=== PATIENT | female | born 1960 | race Caucasian/White ===

== ENCOUNTER 2016-08-19 20:31 | Emergency (ER) | payer SELFPAY ==
--- NOTE | 2016-08-19 20:49 | ER Document Report ---
ED Medical Screen (RME) - General Stated Complaint: CHEST PAIN Notes: 55 yo female c/o left sided chest pain, radiated to left shoulder and neck since 10am today. no previous cardiac hx. 4/5, squeezing pain. mild shortness of breath, + nausea. no HTN, no DM, + smoker. + fam cardiac hx - Related Data Allergies/Adverse Reactions: No Known Allergies Allergy (Verified 01/13/13 17:08) Past Medical History Past Surgical History: Reports: Hx Tubal Ligation - bilateral - Immunizations Hx Diphtheria, Pertussis, Tetanus Vaccination: Yes
[2016-08-19] MEDS ORDERED: ASPIRIN 81 MG TABLET, CHEWABLE PO ONE (20:53)
[2016-08-19] MEDS ORDERED: ONDANSETRON 4 MG TAB.RAPDIS PO ONE (20:53)
[2016-08-19 21:23] LABS: ABSOLUTE BASOPHILS # (AUTO) 0.1 10^3/uL (0.0-0.2); ABSOLUTE EOSINOPHILS # (AUTO) 0.1 10^3/uL (0.0-0.6); ABSOLUTE LYMPHOCYTES (AUTO) 3.5 10^3/uL (0.5-4.7); ABSOLUTE MONOCYTES (AUTO) 0.6 10^3/uL (0.1-1.4); ABSOLUTE NEUT (AUTO) 4.8 10^3/uL (1.7-8.2); BASOPHILS % (AUTO) 0.6 % (0-2); EOSINOPHILS % (AUTO) 1.6 % (0-6); HEMATOCRIT 42.3 % (36.0-47.0); HEMOGLOBIN 14.3 g/dL (12.0-15.5); HGB HCT DIFFERENCE 0.6; LYMPHOCYTES % (AUTO) 38.5 % (13-45); MEAN CORPUSCULAR HGB CONC 33.8 g/dL (32.0-36.0); MEAN CORPUSCULAR VOLUME 89 fl (80-97); MONOCYTES % (AUTO) 6.9 % (3-13); RED BLOOD COUNT 4.75 10^6/uL (3.72-5.28); RED CELL DISTRIBUTION WIDTH 13.6 % (11.5-14.0); SEGMENTED NEUTROPHILS % (AUTO) 52.4 % (42-78); WHITE BLOOD COUNT 9.1 10^3/uL (4.0-10.5)
[2016-08-19 21:33] LABS: ALANINE AMINOTRANSFERASE 42 U/L (9-52); ALBUMIN 4.8 g/dL (3.5-5.0); ALKALINE PHOSPHATASE 100 U/L (38-126); ANION GAP 15 (5-19); ASPARTATE AMINO TRANSFERASE 27 U/L (14-36); BILIRUBIN,TOTAL 0.4 mg/dL (0.2-1.3); BLOOD UREA NITROGEN 18 mg/dL (7-20); CALCIUM 9.8 mg/dL (8.4-10.2); CARBON DIOXIDE 26 mmol/L (22-30); CHLORIDE 103 mmol/L (98-107); CREATINE KINASE 188 U/L (30-135); CREATININE RESULT 0.67 mg/dL (0.52-1.25); GLUCOSE 121 mg/dL (75-110); LIPASE 157.4 U/L (23-300); POTASSIUM 3.7 mmol/L (3.6-5.0); SODIUM 143.8 mmol/L (137-145); TOTAL PROTEIN 7.5 g/dL (6.3-8.2)
[2016-08-19 21:34] LABS: APPEARANCE,URINE CLOUDY; BILIRUBIN,URINE NEGATIVE (NEGATIVE); GLUCOSE, URINE NEGATIVE (NEGATIVE); KETONES,URINE NEGATIVE (NEGATIVE); LEUKOCYTE ESTERASE,URINE NEGATIVE (NEGATIVE); NITRITE,URINE NEGATIVE (NEGATIVE); PROTEIN,URINE NEGATIVE (NEGATIVE); URINE SPECIFIC GRAVITY 1.013; UROBILINOGEN,URINE NEGATIVE mg/dL (<2.0)
[2016-08-19 21:53] LABS: TROPONIN I < 0.012 ng/mL
[2016-08-19 22:01] LABS: PARTIAL THROMBOPLASTIN TIME 21.9 SEC (23.5-35.8); PROTHROMBIN TIME 11.7 SEC (11.4-15.4)
--- NOTE | 2016-08-19 22:02 | ER Document Report ---
ED General - General Chief Complaint: Chest Pain Stated Complaint: CHEST PAIN Notes: Patient is 55-year-old female presents with complaints of chest pain. She says chest pains around 10:30 AM. She says it was intermittent. She says chest pain since resolved. She has no cardiac history. Patient also complains of headache. Patient says her headache started approximately 45 minutes to an hour prior to arrival to the ER. Headache was sudden in onset. She has since had some vomiting. She says it started as a pain in her back to radiate up her neck and into her head and her head has been throbbing. Triage nurse noticed that patient had some facial droop and therefore CT scan was immediately ordered. CT scan unfortunately shows subarachnoid hemorrhage. TRAVEL OUTSIDE OF THE [place] IN LAST 30 DAYS: No - Related Data Allergies/Adverse Reactions: No Known Allergies Allergy (Verified 01/13/13 17:08) Past Medical History - Social History Smoking Status: Current Every Day Smoker Chew tobacco use (# tins/day): No Frequency of alcohol use: None Drug Abuse: None Family History: Reviewed & Not Pertinent Patient has suicidal ideation: No Patient has homicidal ideation: No Renal/ Medical History: Denies: Hx Peritoneal Dialysis Past Surgical History: Reports: Hx Tubal Ligation - bilateral - Immunizations Hx Diphtheria, Pertussis, Tetanus Vaccination: Yes Review of Systems - Review of Systems Notes: My Normal Review Basic REVIEW OF SYSTEMS: CONSTITUTIONAL : Denies fever, chills, or sweats. Denies recent illness. EENT: Denies eye, ear, throat, or mouth pain or symptoms. Denies nasal or sinus congestion. RESPIRATORY: Denies cough, cold, or chest congestion. Denies shortness of breath, difficulty breathing, or wheezing. GASTROINTESTINAL: Denies abdominal pain. Some vomiting. Denies constipation. Last BM: MUSCULOSKELETAL: Denies neck or back pain or joint pain or swelling. SKIN: Denies rash or skin lesions. HEMATOLOGIC : Denies easy bruising or bleeding.ed glands. NEUROLOGICAL: Has a headache. Right-sided facial droop ALL OTHER SYSTEMS REVIEWED AND NEGATIVE. Physical Exam - Vital signs Vitals: Temp Pulse Resp BP Pulse Ox 97.3 F 86 18 171/87 H 94 08/19/16 20:47 08/19/16 20:47 08/19/16 20:47 08/19/16 20:47 08/19/16 20:47 - Notes Notes: General Appearance: Well nourished, alert, cooperative, no acute distress, mild obvious discomfort. Vitals: reviewed, See vital signs table. Head: no swelling or tenderness to the head Eyes: PERRL, EOMI, Conjuctiva clear Mouth: No decreasd moisturey Neck: Supple, no neck tenderness, No thyromegaly Lungs: No wheezing, No rales, No rhonci, No accessory muscle use, good air exchange bilaterally. Heart: Normal rate, Regular rythm, No murmur, no rub Abdomen: Normal BS, soft, No rigidity, No abdominal tenderness, No guarding, no rebound, no abdominal masses, no organomegaly Extremities: strength 5/5 in all extremities, good pulses in all extremities, no swelling or tenderness in the extremities, no edema. Skin: warm, dry, appropriate color, no rash Neuro: speech clear, oriented x 3, normal affect, responds appropriately to questions. Patient has right-sided facial droop when she goes to smile. She has good strength in all 4 extremities. There is no focal weakness in any of her force tremors. Good distal sensation. Gait not tested at this time. Course - Re-evaluation Re-evalutation: 08/19/16 22:16 I have immediately called [facility] and spoke with them to transfer the patient. Also continue the orders that were performed in triage. Unfortunately appears that someone ordered a chest pain order set in triage because she initially presented with chest pain. In this order set is aspirin. I did find the charge nurse and asked her if the patient did receive aspirin. The charge nurse confirms the patient had already received the aspirin when she was first initially evaluated in triage. - Vital Signs Vital signs: Temp Pulse Resp BP Pulse Ox 97.3 F 86 18 171/87 H 94 08/19/16 20:47 08/19/16 21:05 08/19/16 21:05 08/19/16 21:05 08/19/16 21:05 - Laboratory Result Diagrams: 08/19/16 20:58 08/19/16 20:58 Laboratory results interpreted by me: 08/19/16 08/19/16 08/19/16 20:58 20:58 20:58 APTT 21.9 L Glucose 121 H Creatine Kinase 188 H Urine Blood SMALL H - EKG Interpretation by Me Additional EKG results interpreted by me: 08/19/16 22:01 EKG is reviewed and interpreted by me. EKG shows normal sinus rhythm with rate of [address] segment elevation or depression. No ischemic T wave inversions. DC level, QRS duration, QTC intervals are within normal range. No old EKG available for comparison at this time. - Transfer of Care Notes: 08/19/16 22:41 I just reevaluated patient. I will order some morphine for pain. I did order no cardiac pain to be hung but not administered unless patient's blood pressure does get above 165 systolically. Currently her blood pressures in the 150s systolically and 80s diastolically. She has had some vomiting. She did receive Zofran. I have ordered Phenergan. I did speak with Dr. Lutz, neurosurgeon, who agrees to accept the patient. Transport is actually already very nearby the hospital and will be here very shortly. I did sit down with the patient and her . I explained to them that aspirin was given earlier because of her initial complaint of chest pain. They are very understanding of this. Patient says she did vomit shortly after receiving aspirin. They have no further questions regarding to this. All questions were answered in regards to her underlying condition and possible treatment options. I informed them that further discussion about treatment for this will be discussed with him by the neurosurgeon at [facility]. Dictation of this chart was performed using voice recognition software; therefore, there may be some unintended grammatical errors. Discharge - Discharge Clinical Impression: Subarachnoid bleed Chest pain Qualifiers: Chest pain type: unspecified Qualified Code(s): R07.9 - Chest pain, unspecified Condition: Stable Disposition: [facility]
[2016-08-19] MEDS ORDERED: PROMETHAZINE HCL INJ 25 MG/1 ML VIAL IM ONE (22:22)
[2016-08-19] MEDS ORDERED: NICARDIPINE HCL RTU, ISO-OS 200 ML IV PRN (22:22)
[2016-08-19] MEDS ORDERED: MORPHINE SULFATE 10 MG/ML INJ IV ONE (22:38)
[2016-08-19 22:51] VITALS: BP 156/88
[2016-08-19] MEDS ORDERED: PROMETHAZINE HCL INJ 25 MG/1 ML VIAL ONE (23:12)
--- NOTE | 2016-08-21 12:51 | EKG REPORT ---
SEVERITY:- ABNORMAL ECG - SINUS RHYTHM CONSIDER ANTEROSEPTAL INFARCT : Confirmed by: Mick Vaughan MD 21-Aug-2016 12:50:24
== END 2016-08-19 23:09 | disposition short-term general hospital (02) ==
LOC: ER 20:31
DX: I60.9 Nontraumatic subarachnoid hemorrhage, unspecified (principal); R07.9 Chest pain, unspecified; R51 Headache; M54.2 Cervicalgia; F17.210 Nicotine dependence, cigarettes, uncomplicated
CPT/HCPCS: 93005; 99285; 96374; 36415; 82553; 82550; 83690; 85025; 85610; 85730; 80053; 81001; 84484; 71020; 70450; 93010; S0119; J2270

== ENCOUNTER 2017-03-31 16:20 | Emergency (ER) | payer OTHER ==
[2017-03-31] MEDS ORDERED: PHENTOLAMINE MESYLATE INJ 5 MG VIAL IV ONE (16:58)
[2017-03-31] MEDS ORDERED: MORPHINE SULFATE 10 MG/ML INJ IV ONE (16:58)
[2017-03-31] MEDS ORDERED: NORMAL SALINE 1000 ML 1,000 ML IV ONE (16:58)
--- NOTE | 2017-03-31 16:59 | ER Document Report ---
ED Medical Screen (RME) - General Chief Complaint: Abdominal Pain Stated Complaint: ABDOMINAL PAIN Time Seen by Provider: 03/31/17 16:57 Notes: Patient reports onset this morning of left lower quadrant abdominal pain and left lower back pain. No previous history of kidney stones. No vaginal symptoms. She has had nausea as well. No change of stools. No fevers. Patient was recently in the hospital for clipping of a brain aneurysm. 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 No current headache or neurological symptoms. TRAVEL OUTSIDE OF THE [place] IN LAST 30 DAYS: No - Related Data Allergies/Adverse Reactions: hydralazine Allergy (Verified 03/31/17 16:27) Penicillins Allergy (Verified 03/31/17 16:27) ondansetron [From Zofran (as hydrochloride)] Adverse Reaction (Verified 16:27) Past Medical History - Social History Chew tobacco use (# tins/day): No Frequency of alcohol use: None Drug Abuse: None - Past Medical History Cardiac Medical History: Reports: Hx Hypercholesterolemia Renal/ Medical History: Denies: Hx Peritoneal Dialysis Past Surgical History: Reports: Hx Tubal Ligation - Immunizations Hx Diphtheria, Pertussis, Tetanus Vaccination: Yes History of Influenza Vaccine for 03/2017 - 08/2017 Season: No Physical Exam - Vital signs Vitals: Temp Pulse Resp BP Pulse Ox 98.7 F 98 18 144/91 H 98 03/31/17 16:24 03/31/17 16:24 03/31/17 16:24 03/31/17 16:24 03/31/17 16:24 Course - Vital Signs Vital signs: Temp Pulse Resp BP Pulse Ox 98.7 F 98 18 144/91 H 98 03/31/17 16:24 03/31/17 16:24 03/31/17 16:24 03/31/17 16:24 03/31/17 16:24
[2017-03-31] MEDS ORDERED: METOCLOPRAMIDE HCL INJ/PF 10 MG/2 ML SDV IV ONE (17:16)
[2017-03-31 17:33] LABS: ABSOLUTE BASOPHILS # (AUTO) 0.1 10^3/uL (0.0-0.2); ABSOLUTE MONOCYTES (AUTO) 0.7 10^3/uL (0.1-1.4); BASOPHILS % (AUTO) 0.5 % (0-2); EOSINOPHILS % (AUTO) 0.1 % (0-6); HEMATOCRIT 38.6 % (36.0-47.0); HEMOGLOBIN 12.6 g/dL (12.0-15.5); HGB HCT DIFFERENCE -0.8; LYMPHOCYTES % (AUTO) 11.9 % (13-45); MEAN CORPUSCULAR HEMOGLOBIN 29.3 pg (27.0-33.4); MEAN CORPUSCULAR HGB CONC 32.8 g/dL (32.0-36.0); MEAN CORPUSCULAR VOLUME 89 fl (80-97); MONOCYTES % (AUTO) 4.3 % (3-13); RED BLOOD COUNT 4.32 10^6/uL (3.72-5.28); RED CELL DISTRIBUTION WIDTH 14.2 % (11.5-14.0); SEGMENTED NEUTROPHILS % (AUTO) 83.2 % (42-78); WHITE BLOOD COUNT 16.8 10^3/uL (4.0-10.5)
[2017-03-31 17:47] LABS: APPEARANCE,URINE SLIGHTLY-CLOUDY; BILIRUBIN,URINE NEGATIVE (NEGATIVE); GLUCOSE, URINE NEGATIVE (NEGATIVE); KETONES,URINE NEGATIVE (NEGATIVE); LEUKOCYTE ESTERASE,URINE TRACE (NEGATIVE); NITRITE,URINE NEGATIVE (NEGATIVE); PROTEIN,URINE NEGATIVE (NEGATIVE); URINE SPECIFIC GRAVITY 1.019; UROBILINOGEN,URINE NEGATIVE mg/dL (<2.0)
[2017-03-31 17:49] LABS: ALANINE AMINOTRANSFERASE 48 U/L (9-52); ALBUMIN 4.7 g/dL (3.5-5.0); ALKALINE PHOSPHATASE 113 U/L (38-126); ANION GAP 15 (5-19); ASPARTATE AMINO TRANSFERASE 28 U/L (14-36); BILIRUBIN,DIRECT 0.3 mg/dL (0.0-0.4); BILIRUBIN,TOTAL 0.3 mg/dL (0.2-1.3); BLOOD UREA NITROGEN 13 mg/dL (7-20); CALCIUM 9.6 mg/dL (8.4-10.2); CARBON DIOXIDE 25 mmol/L (22-30); CHLORIDE 105 mmol/L (98-107); CREATININE RESULT 0.75 mg/dL (0.52-1.25); GLUCOSE 127 mg/dL (75-110); LIPASE 83.6 U/L (23-300); SODIUM 144.5 mmol/L (137-145); TOTAL PROTEIN 7.6 g/dL (6.3-8.2)
--- NOTE | 2017-03-31 17:51 | ER Document Report ---
ED General - General Chief Complaint: Abdominal Pain Stated Complaint: ABDOMINAL PAIN Time Seen by Provider: 03/31/17 16:57 Mode of Arrival: Ambulatory Information source: Patient Notes: 56-year-old female presents with left flank pain radiating to the left groin. Patient has pain started earlier today denies any fevers or chills denies any urinary symptoms denies any abdominal pain TRAVEL OUTSIDE OF THE [place] IN LAST 30 DAYS: No - HPI Onset: Just prior to arrival Onset/Duration: Sudden Quality of pain: Achy Severity: Mild Pain Level: 1 Associated symptoms: Other Exacerbated by: Denies Relieved by: Denies Similar symptoms previously: No Recently seen / treated by doctor: No - Related Data Allergies/Adverse Reactions: hydralazine Allergy (Verified 03/31/17 16:27) Penicillins Allergy (Verified 03/31/17 16:27) ondansetron [From Zofran (as hydrochloride)] Adverse Reaction (Verified 16:27) Past Medical History - Social History Smoking Status: Former Smoker Cigarette use (# per day): No Chew tobacco use (# tins/day): No Smoking Education Provided: No Frequency of alcohol use: None Drug Abuse: None Family History: Reviewed & Not Pertinent - Past Medical History Cardiac Medical History: Reports: Hx Hypercholesterolemia Renal/ Medical History: Denies: Hx Peritoneal Dialysis Past Surgical History: Reports: Hx Tubal Ligation - Immunizations Hx Diphtheria, Pertussis, Tetanus Vaccination: Yes Review of Systems - Review of Systems Notes: REVIEW OF SYSTEMS: CONSTITUTIONAL : Denies fever, chills, or sweats. Denies recent illness. EENT: Denies eye, ear, throat, or mouth pain or symptoms. Denies nasal or sinus congestion or discharge. Denies throat, tongue, or mouth swelling or difficulty swallowing. CARDIOVASCULAR: Denies chest pain. Denies palpitations or racing or irregular heart beat. Denies ankle edema. RESPIRATORY: Denies cough, cold, or chest congestion. Denies shortness of breath, difficulty breathing, or wheezing. GASTROINTESTINAL: Admits to left lower quadrant pain remains the left flank GENITOURINARY: Denies difficulty urinating, painful urination, burning, frequency, blood in urine, or discharge. FEMALE GENITOURINARY: Denies vaginal bleeding, heavy or abnormal periods, irregular periods. Denies vaginal discharge or odor. MUSCULOSKELETAL: Denies back or neck pain or stiffness. Denies joint pain or swelling. SKIN: Denies rash, lesions or sores. HEMATOLOGIC : Denies easy bruising or bleeding. LYMPHATIC: Denies swollen, enlarged glands. NEUROLOGICAL: Denies confusion or altered mental status. Denies passing out or loss of consciousness. Denies dizziness or lightheadedness. Denies headache. Denies weakness or paralysis or loss of use of either side. Denies problems with gait or speech. Denies sensory loss, numbness, or tingling. Denies seizures. PSYCHIATRIC: Denies anxiety or stress. Denies depression, suicidal ideation, or homicidal ideation. ALL OTHER SYSTEMS REVIEWED AND NEGATIVE. PHYSICAL EXAMINATION: GENERAL: Well-appearing, well-nourished and in no acute distress. HEAD: Atraumatic, normocephalic. EYES: Pupils equal round and reactive to light, extraocular movements intact, conjunctiva are normal. ENT: Nares patent, oropharynx clear without exudates. Moist mucous membranes. NECK: Normal range of motion, supple without lymphadenopathy LUNGS: Breath sounds clear to auscultation bilaterally and equal. No wheezes rales or rhonchi. HEART: Regular rate and rhythm without murmurs ABDOMEN: Soft, mild left CVA tenderness Female : deferred Musculoskeletal: Normal range of motion, no pitting or edema. No cyanosis. NEUROLOGICAL: Cranial nerves grossly intact. Normal speech, normal gait. Normal sensory, motor exams PSYCH: Normal mood, normal affect. SKIN: Warm, Dry, normal turgor, no rashes or lesions noted. Dictation was performed using [employer] voice recognition software Physical Exam - Vital signs Vitals: Temp Pulse Resp BP Pulse Ox 98.7 F 98 18 144/91 H 98 03/31/17 16:24 03/31/17 16:24 03/31/17 16:24 03/31/17 16:24 03/31/17 16:24 Course - Re-evaluation Re-evalutation: 03/31/17 18:11 Patient is noted to have hematuria elevated white count CTs pending 03/31/17 19:17 CT is consistent with a stone. There is no sign of infection. Patient will be given urologist as well as close follow-up instructions After performing a Medical Screening Examination, I estimate there is LOW risk for ACUTE APPENDICITIS, BOWEL OBSTRUCTION, ACUTE CHOLECYSTITIS, PERFORATED DIVERTICULITIS, INCARCERATED HERNIA, PANCREATITIS, PELVIC INFLAMMATORY DISEASE, PERFORATED ULCER, ECTOPIC , or TUBO-OVARIAN ABSCESS, thus I consider the discharge disposition reasonable. Also, there is no evidence or peritonitis , sepsis, or toxicity. I have reevaluated this patient multiple times and no significant life threatening changes are noted. The patient and I have discussed the diagnosis and risks, and we agree with discharging home with close follow-up with the understanding that symptoms and presentations can change. We also discussed returning to the Emergency Department immediately if new or worsening symptoms occur. We have discussed the symptoms which are most concerning (e.g., bloody stool, fever, changing or worsening pain, vomiting) that necessitate immediate return. - Vital Signs Vital signs: Temp Pulse Resp BP Pulse Ox 98.7 F 98 18 144/91 H 98 03/31/17 16:24 03/31/17 16:24 03/31/17 16:24 03/31/17 16:24 03/31/17 16:24 - Laboratory Result Diagrams: 03/31/17 17:14 03/31/17 17:14 Laboratory results interpreted by me: 03/31/17 03/31/17 03/31/17 17:14 17:14 17:14 WBC 16.8 H RDW 14.2 H Seg Neutrophils % 83.2 H Lymphocytes % 11.9 L Absolute Neutrophils 14.0 H Glucose 127 H Urine Blood MODERATE H Ur Leukocyte Esterase TRACE H - Diagnostic Test Radiology reviewed: Image reviewed, Reports reviewed - report given to patient Discharge - Discharge Clinical Impression: Kidney stone on left side Condition: Stable Disposition: HOME, SELF-CARE Instructions: Kidney Stone ([facility]) Prescriptions: Ketorolac Tromethamine [Toradol 10 mg Tablet] 10 mg PO Q8HP PRN #14 tablet PRN Reason: Metoclopramide HCl [Reglan 10 mg Tablet] 1 - 2 tab PO ASDIR PRN #25 tablet PRN Reason: Oxycodone HCl/Acetaminophen [Percocet 5-325 mg Tablet] 1 tab PO ASDIR PRN #15 tab PRN Reason: Tamsulosin HCl [Flomax 0.4 mg Cap.sr] 0.4 mg PO DAILY #14 cap.sr.24h Referrals: MONSTER DAILY FNP-C [Primary Care Provider] - Follow up as needed EVAN STOVALL MD [ACTIVE STAFF] - Follow up tomorrow
[2017-03-31] MEDS ORDERED: KETOROLAC TROMETHAMINE INJ/PF 30 MG/1 ML SDV IV ONE (17:52)
--- NOTE | 2017-03-31 18:31 | RADIOLOGY REPORT (SQ) ---
EXAM DESCRIPTION: CT LTD RENAL STONE PROTOCOL ON COMPLETED DATE/TIME: 03/31/2017 6:20 pm REASON FOR STUDY: flank pain hematuria COMPARISON: None. TECHNIQUE: CT scan of the abdomen and pelvis performed without intravenous or oral contrast. Images reviewed with lung, soft tissue, and bone windows. Reconstructed coronal and sagittal MPR images revi ewed. All images stored on PACS. All CT scanners at this facility use dose modulation, iterative reconstruction, and/or weight based d osing when appropriate to reduce radiation dose to as low as reasonably achievable (ALARA). [facility]: Dose Right [facility]: CareDose [facility]: Dose Right [facility]: Teradose 4D [facility]: [employer] RADIATION DOSE: mGy. LIMITATIONS: None. FINDINGS: LOWER CHEST: No significant findings. No nodules or infiltrates. NON-CONTRASTED LIVER, SPLEEN, ADRENALS: Diffuse fatty infiltration of the liver. Evaluation limited by lack of IV contrast. No identified significant masses. PANCREAS: No masses. No peripancreatic inflammatory changes. GALLBLADDER: No identified stones by CT criteria. No inflammatory changes to suggest cholecystitis. RIGHT KIDNEY AND URETER: No suspicious masses. Assessment limited by lack of IV contrast. No signif icant calcifications. No hydronephrosis or hydroureter. LEFT KIDNEY AND URETER: No suspicious masses. Assessment limited by lack of IV contrast. 6 mm calci fied stone in the distal left ureter above the UVJ with moderate hydronephrosis - hydroureter. Addit ional small stones are present in the lower pole parenchyma. AORTA AND RETROPERITONEUM: No aneurysm. No retroperitoneal masses or adenopathy. BOWEL AND PERITONEAL CAVITY: No obvious masses or inflammatory changes. No free fluid. APPENDIX: Normal. PELVIS, BLADDER, AND ABDOMINAL WALL:No abnormal masses. No free fluid. Bladder normal. BONES: No acute findings. OTHER: No other significant finding. IMPRESSION: 6 mm calcified stone in the distal left ureter above the UVJ with moderate hydronephrosi s - hydroureter. COMMENT: Quality ID # [id number]: Final reports with documentation of one or more dose reduction techniques (e.g., Automated exposure control, adjustment of the mA and/or kV according to patient size, use of iterative reconstruction technique) TECHNICAL DOCUMENTATION: JOB ID: [id number]- All Rights Reserved
[2017-03-31] MEDS ORDERED: TAMSULOSIN HCL 0.4 MG CAP.SR.24H PO ONE (19:20)
[2017-03-31 20:09] VITALS: BP 140/86
== END 2017-03-31 20:12 | disposition home or self-care (01) ==
LOC: ER 16:20
DX: N20.0 Calculus of kidney (principal); R10.32 Left lower quadrant pain; Z87.891 Personal history of nicotine dependence
CPT/HCPCS: 99284; 96361; 96374; 96375; 36415; 83690; 85025; 80053; 81001; 76380; J1885; J2765; J7030

== ENCOUNTER 2017-04-03 22:28 | Inpatient (IN) | payer BC, OTHER ==
[2017-04-03] MEDS ORDERED: KETOROLAC TROMETHAMINE INJ/PF 30 MG/1 ML SDV IV ONE (23:26)
[2017-04-03] MEDS ORDERED: MORPHINE SULFATE 10 MG/ML INJ IV PRN (23:27)
[2017-04-03] MEDS ORDERED: NORMAL SALINE 1000 ML 1,000 ML IV ONE (23:28)
[2017-04-03 23:40] LABS: HEMOGLOBIN 11.5 g/dL (12.0-15.5); HGB HCT DIFFERENCE 0.5; MEAN CORPUSCULAR HGB CONC 33.8 g/dL (32.0-36.0); MEAN CORPUSCULAR VOLUME 89 fl (80-97); RED BLOOD COUNT 3.83 10^6/uL (3.72-5.28); RED CELL DISTRIBUTION WIDTH 14.5 % (11.5-14.0); WHITE BLOOD COUNT 15.4 10^3/uL (4.0-10.5)
[2017-04-03] MEDS ORDERED: METOCLOPRAMIDE HCL INJ/PF 10 MG/2 ML SDV IV ONE (23:43)
--- NOTE | 2017-04-03 23:44 | ER Document Report ---
ED General - General Chief Complaint: Vomiting Stated Complaint: VOMITING,WEAK Time Seen by Provider: 04/03/17 23:19 Notes: Patient is a 56-year-old female with a past medical history of prior brain aneurysms, hypertension, seen in the emergency room 3 days ago for flank pain, found to have a 6 mm obstructing stone on the left. She presents today stating that she has been able to tolerate any oral intake for almost 72 hours and is been coming increasingly generally weak, fatigued and feel that she is unable to even get out of bed. She states that her left flank pain is overall improved from when she was last seen but does describe an ongoing dull, intermittent, mild pain to the left flank. Nothing improves or worsens that pain. Her primary concern is her complete inability to tolerate any form of oral intake. Nothing improves or worsens this. She has no history of similar symptoms in the past. She denies any focal abdominal pain, chest pain, but does note that she has felt somewhat short of breath. She has no history of DVT or pulmonary embolus. No use of estrogen. TRAVEL OUTSIDE OF THE [place] IN LAST 30 DAYS: No - Related Data Allergies/Adverse Reactions: hydralazine Allergy (Verified 03/31/17 16:27) morphine Allergy (Verified 04/03/17 23:33) Penicillins Allergy (Verified 03/31/17 16:27) ondansetron [From Zofran (as hydrochloride)] Adverse Reaction (Verified 16:27) Home Medications: Current Home Medications Fenofibrate Nanocrystallized [Fenofibrate] 48 mg PO DAILY 04/04/17 [History] Levetiracetam [Levetiracetam] 500 mg PO BID 04/04/17 [History] Past Medical History - General Information source: Patient, Relative - Social History Smoking Status: Former Smoker Frequency of alcohol use: None Drug Abuse: None Lives with: Spouse/Significant other Family History: Reviewed & Not Pertinent Patient has suicidal ideation: No Patient has homicidal ideation: No - Past Medical History Cardiac Medical History: Reports: Hx Hypercholesterolemia Renal/ Medical History: Denies: Hx Peritoneal Dialysis Past Surgical History: Reports: Hx Tubal Ligation - Immunizations Hx Diphtheria, Pertussis, Tetanus Vaccination: Yes Review of Systems - Review of Systems Notes: Constitutional: Negative for fever. HENT: Negative for sore throat. Eyes: Negative for visual changes. Cardiovascular: Negative for chest pain. Respiratory: Positive for shortness of breath. Gastrointestinal: Positive for left flank pain and vomiting Genitourinary: Negative for dysuria. Musculoskeletal: Negative for back pain. Skin: Negative for rash. Neurological: Negative for headaches, weakness or numbness. 10 point ROS negative except as marked above and in HPI. Physical Exam - Vital signs Vitals: Temp Pulse Resp BP Pulse Ox 97.7 F 140 H 18 158/74 H 96 04/03/17 22:34 04/03/17 22:34 04/03/17 22:34 04/03/17 22:34 04/03/17 22:34 Interpretation: Tachycardic Notes: PHYSICAL EXAMINATION: GENERAL: Appears severely ill, pale, diaphoretic, somewhat listless HEAD: Atraumatic, normocephalic. EYES: Pupils equal round and reactive to light, extraocular movements intact, sclera anicteric, conjunctiva are normal. ENT: nares patent, oropharynx clear without exudates. Dry mucous membranes. NECK: Normal range of motion, supple without lymphadenopathy LUNGS: Breath sounds clear to auscultation bilaterally and equal. No wheezes rales or rhonchi. HEART: Regular tachycardia without murmurs ABDOMEN: Soft, nontender, normoactive bowel sounds. No guarding, no rebound. No masses appreciated. No CVA tenderness EXTREMITIES: Normal range of motion, no pitting or edema. No cyanosis. NEUROLOGICAL: No focal neurological deficits. Moves all extremities spontaneously and on command. PSYCH: Normal mood, normal affect. SKIN: Warm, Dry, poor skin turgor, pale. Course - Re-evaluation Re-evalutation: 04/03/17 23:43 Patient presents extremely ill in appearance, pale, diaphoretic, tachycardic with initial heart rate of 142 at time of my assessment. Blood pressure temperature within normal limits. Patient was seen 3 days ago and had an obstructing 6 mm kidney stone at that time, urinalysis questionably positive for possible urinary tract infection although cultures were not sent and no antibiotics were initiated. Patient reports that she has been unable to tolerate any fluids at home since being discharged. I suspect the patient is severely dehydrated based on her clinical examination and may have an infected stone. Alternative diagnostic considerations include possible pulmonary embolus given her tachycardia, tachypnea, although she is not hypoxic and denies any pleuritic pain. She does however report that she feels short of breath. Will proceed with broad laboratories, cultures, aggressive IV hydration , and if this does not begin to resolve some of patient's tachycardia will also proceed with evaluation for possible pulmonary embolus although again my clinical suspicion for this diagnosis is low. 04/04/17 00:09 Tachycardia gradually improving, currently 123 after receiving approximately 500 cc of fluid. Labs are pending. Portable renal ultrasound be obtained to evaluate for ongoing hydronephrosis on the left. 04/04/17 01:23 Patient appears markedly improved, heart rate 104. Oxygen saturations remain within normal limits. Patient states she overall feels significantly better. Urinalysis appears consistent with an infected stone, white blood cell clumps, 3 + bacteria, 20 white blood cells in the urine. Culture has been sent. IV ceftriaxone has been initiated. Renal ultrasound shows ongoing left-sided hydronephrosis. Will consult with urology and plan for admission to the hospitalist service 04/04/17 01:45 I have consulted with urologist on-call Dr. Guevara who will plan to come to the emergency department tonight and place a stent. I have also discussed with Dr. Kaplan who is agreeable to admission. - Vital Signs Vital signs: Temp Pulse Resp BP Pulse Ox 97.7 F 140 H 18 139/73 H 94 04/03/17 22:34 04/03/17 22:34 04/04/17 00:06 04/04/17 00:06 04/04/17 00:06 - Laboratory Result Diagrams: 04/03/17 23:23 04/03/17 23:23 Laboratory results interpreted by me: 04/03/17 04/03/17 04/03/17 23:23 23:23 23:23 WBC 15.4 H Hgb 11.5 L Hct 34.0 L RDW 14.5 H Seg Neuts % (Manual) 89 H Band Neutrophils % 1 L Lymphocytes % (Manual) 8 L Monocytes % (Manual) 2 L Abs Neuts (Manual) 13.9 H VBG pH VBG pCO2 Sodium 134.1 L Potassium 3.5 L Chloride 96 L Est GFR (Non-Af Amer) 55 L Glucose 238 H Direct Bilirubin 0.6 H Total Protein 6.2 L Lipase 13.3 L Urine Protein Urine Glucose (UA) Urine Ketones Urine Blood Urine Nitrite 04/03/17 04/04/17 23:55 00:06 WBC Hgb Hct RDW Seg Neuts % (Manual) Band Neutrophils % Lymphocytes % (Manual) Monocytes % (Manual) Abs Neuts (Manual) VBG pH 7.48 H VBG pCO2 34.0 L Sodium Potassium Chloride Est GFR (Non-Af Amer) Glucose Direct Bilirubin Total Protein Lipase Urine Protein >=500 H Urine Glucose (UA) >=500 H Urine Ketones 20 H Urine Blood MODERATE H Urine Nitrite POSITIVE H - Diagnostic Test Radiology reviewed: Image reviewed, Reports reviewed Radiology results interpreted by me: 04/04/17 01:46 Renal: Ongoing hydronephrosis of the left kidney Critical Care Note - Critical Care Note Total time excluding time spent on procedures (mins): 40 Comments: Critical care time spent obtaining history from patient or surrogate, discussions with consultants, development of treatment plan with patient or surrogate, evaluation of patient's response to treatment, examination of patient , ordering and performing treatments and interventions, ordering and review of laboratory studies, re-evaluation of patient's condition, ordering and review of radiographic studies and review of old charts Discharge - Discharge Clinical Impression: Pyelonephritis, Dehydration Hydronephrosis Qualifiers: Hydronephrosis type: with renal calculous obstruction Qualified Code(s): N13.2 - Hydronephrosis with renal and ureteral calculous obstruction Sepsis Qualifiers: Sepsis type: sepsis due to unspecified organism Qualified Code(s): A41.9 - Sepsis, unspecified organism Condition: Fair Disposition: ADMITTED INPATIENT [facility] Unit Admitted: Telemetry Referrals: MONSTER DAILY FNP-C [Primary Care Provider] - Follow up as needed
[2017-04-03] MEDS ORDERED: FENTANYL CITRATE INJ/PF 100 MCG/2 ML AMPUL IV PRN (23:47)
[2017-04-03 23:53] LABS: ADD ON TESTING BLD IN LAB ACKNOWLEDGE
[2017-04-04 00:07] LABS: BAND NEUTROPHILS % (MANUAL) 1 % (3-5); BASOPHILS % (MANUAL) 0 % (0-2); EOSINOPHILS % (MANUAL) 0 % (0-6); LYMPHOCYTES % (MANUAL) 8 % (13-45); TOTAL CELLS COUNTED 100
[2017-04-04 00:10] LABS: ANISOCYTOSIS SLIGHT; BURR CELLS SLIGHT; HYPOCHROMASIA SLIGHT; PLATELET CLUMPS PRESENT; SCHISTOCYTES SLIGHT; TOXIC GRANULATION 2+; TOXIC VACUOLATION PRESENT
[2017-04-04 00:22] LABS: ALANINE AMINOTRANSFERASE 38 U/L (9-52); ALBUMIN 3.5 g/dL (3.5-5.0); ALKALINE PHOSPHATASE 100 U/L (38-126); ASPARTATE AMINO TRANSFERASE 22 U/L (14-36); BILIRUBIN,DIRECT 0.6 mg/dL (0.0-0.4); BILIRUBIN,TOTAL 0.8 mg/dL (0.2-1.3); LIPASE 13.3 U/L (23-300); TOTAL PROTEIN 6.2 g/dL (6.3-8.2)
[2017-04-04 00:24] LABS: VENOUS BLOOD BASE EXCESS 1.6 mmol/L; VENOUS BLOOD HCO3 24.8 mmol/L (20-32); VENOUS BLOOD PH 7.48 (7.30-7.42)
[2017-04-04 00:24] LABS: ANION GAP 15 (5-19); BLOOD UREA NITROGEN 19 mg/dL (7-20); CALCIUM 9.1 mg/dL (8.4-10.2); CARBON DIOXIDE 23 mmol/L (22-30); CHLORIDE 96 mmol/L (98-107); CREATININE RESULT 1.04 mg/dL (0.52-1.25); GLUCOSE 238 mg/dL (75-110); POTASSIUM 3.5 mmol/L (3.6-5.0); SODIUM 134.1 mmol/L (137-145)
[2017-04-04 00:31] LABS: AMORPHOUS SEDIMENT,URINE TRACE /HPF; APPEARANCE,URINE CLOUDY; BILIRUBIN,URINE NEGATIVE (NEGATIVE); GLUCOSE, URINE >=500 mg/dL (NEGATIVE); KETONES,URINE 20 mg/dL (NEGATIVE); LEUKOCYTE ESTERASE,URINE NEGATIVE (NEGATIVE); NITRITE,URINE POSITIVE (NEGATIVE); PROTEIN,URINE >=500 mg/dL (NEGATIVE); URINE SPECIFIC GRAVITY 1.018; UROBILINOGEN,URINE NEGATIVE mg/dL (<2.0)
--- NOTE | 2017-04-04 01:09 | RADIOLOGY REPORT (SQ) ---
EXAM DESCRIPTION: CHEST SINGLE VIEW COMPLETED DATE/TIME: 04/04/2017 1:00 am REASON FOR STUDY: sob COMPARISON: 08/19/2016 EXAM PARAMETERS: NUMBER OF VIEWS: One view. TECHNIQUE: Single frontal radiographic view of the chest acquired. RADIATION DOSE: NA LIMITATIONS: None. FINDINGS: LUNGS AND PLEURA: No opacities, masses or pneumothorax. No pleural effusion. MEDIASTINUM AND HILAR STRUCTURES: No masses. Contour normal. HEART AND VASCULAR STRUCTURES: Heart normal in size. Normal vasculature. BONES: No acute findings. HARDWARE: None in the chest. OTHER: No other significant finding. IMPRESSION: NO ACUTE RADIOGRAPHIC FINDING IN THE CHEST. TECHNICAL DOCUMENTATION: JOB ID: [id number]
--- NOTE | 2017-04-04 01:14 | RADIOLOGY REPORT (SQ) ---
EXAM DESCRIPTION: U/S RETROPERITON (RENAL/AORTA) COMPLETED DATE/TIME: 04/04/2017 12:58 am REASON FOR STUDY: eval hydronephrosis left COMPARISON: CT scan 03/31/2017 TECHNIQUE: Dynamic and static grayscale images acquired of the kidneys and bladder and recorded on P ACS. Additional selected color Doppler and spectral images recorded. LIMITATIONS: None. FINDINGS: RIGHT KIDNEY: Normal size. Normal echogenicity. No solid or suspicious masses. No h ydronephrosis. No calcifications. LEFT KIDNEY: Normal size. Normal echogenicity. No solid or suspicious masses. Hydronephrosis. 2.2 cm. Similar to previous CT. No calcifications. BLADDER: No masses. OTHER FINDINGS: Distended gallbladder. IMPRESSION: Left hydronephrosis unchanged from recent CT. Otherwise negative study of the kidneys a nd bladder. TECHNICAL DOCUMENTATION: JOB ID: [id number] [employer]- All Rights Reserved
[2017-04-04] MEDS ORDERED: ACETAMINOPHEN 325 MG TABLET PO PRN (01:43)
[2017-04-04] MEDS ORDERED: GLUCAGON,HUMAN RECOMB 1 MG INJ IM PRN (01:43)
[2017-04-04] MEDS ORDERED: INSULIN LISPRO 100 UNIT/ML 3 ML VIAL SUBCUT PRN (01:43)
[2017-04-04] MEDS ORDERED: DEXTROSE 40% GEL 15 GM TUBE PO PRN ×2 (01:43)
[2017-04-04] MEDS ORDERED: DEXTROSE 50%-WATER 25 GM/50 ML DISP.SYRIN IV PRN ×2 (01:43)
[2017-04-04] MEDS ORDERED: NORMAL SALINE 1000 ML 1,000 ML IV SCH (01:45)
[2017-04-04] MEDS ORDERED: VANCOMYCIN HCL 1,000 MG in DEXTROSE 5%-WATER 250 ML IV ONE (01:47)
[2017-04-04] MEDS ORDERED: NORMAL SALINE 1000 ML 1,000 ML IV ONE (01:48)
[2017-04-04] MEDS ORDERED: VANCOMYCIN HCL INJ 1000 MG VIAL IV PRN (01:57)
[2017-04-04] MEDS ORDERED: VANCOMYCIN HCL 2,000 MG in DEXTROSE 5%-WATER 500 ML IV ONE (02:00)
[2017-04-04] MEDS ORDERED: VANCOMYCIN HCL 0 MG in DEXTROSE 5%-WATER 250 ML IV NR (02:00)
[2017-04-04] MEDS ORDERED: CEFTRIAXONE 1 GM/D5W RTU 1 GM/50 ML RTUPB IV ONE (02:00)
[2017-04-04] MEDS ORDERED: FENTANYL CITRATE INJ/PF 100 MCG/2 ML AMPUL ONE ×2 (02:42)
[2017-04-04] MEDS ORDERED: PROPOFOL INJ 200 MG/20 ML VIAL IV ONE (02:43)
[2017-04-04] MEDS ORDERED: MIDAZOLAM 2 MG/2 ML INJ ONE (02:43)
--- NOTE | 2017-04-04 04:12 | Operative Report ---
Operative Report DATE OF SURGERY: 04/04/17 PREOPERATIVE DIAGNOSIS: Left distal ureteral stone, left hydronephrosis, sepsis POSTOPERATIVE DIAGNOSIS: Same OPERATION: Cystoscopy, placement of left ureteral stent SURGEON: JEFF MCARTHUR II ANESTHESIA: GA TISSUE REMOVED OR ALTERED: None COMPLICATIONS: none INTRAOPERATIVE FINDINGS: Distal left ureteral stone with obstruction PROCEDURE: Patient was taken to the cystoscopy suite and placed into the supine position on the cystoscopy table. After adequate general anesthesia, she was placed into the lithotomy position and prepped and draped in the usual sterile fashion. A 22 Latvian panendoscope was placed through the urethra into the bladder and the left ureteral orifice visualized. A 5 Latvian open-ended ureteral catheter was used to cannulate the ureteral orifice and a 0.035 Glidewire was placed into the left ureteral catheter and advanced in a retrograde fashion under fluoroscopic guidance into the left renal pelvis. Utilizing the exchange technique, a 6 Latvian 24 cm double-pigtail stent was placed and positioned fluoroscopically into the left renal unit. Urine was seen exiting the stent after placement. The bladder was drained and the cystoscope removed. The patient was returned to PACU in satisfactory condition.
[2017-04-04] MEDS ORDERED: ACETAMINOPHEN 100 ML IV ONE (04:14)
--- NOTE | 2017-04-04 04:14 | RADIOLOGY REPORT (SQ) ---
EXAM DESCRIPTION: NO CHG FLUORO; KUB/ABDOMEN (SINGLE VIEW) COMPLETED DATE/TIME: 04/04/2017 4:06 am REASON FOR STUDY: LEFT URETER STENT PLACEMENT COMPARISON: Ultrasound FLUOROSCOPY TIME: 32 seconds 2 images saved to PACS. TECHNIQUE: Intra-operative images acquired during surgical procedure to evaluate progress. NUMBER OF IMAGES: 2 LIMITATIONS: None. FINDINGS: Placement of a left ureteral stent. IMPRESSION: IMAGE(S) OBTAINED DURING PROCEDURE. COMMENT: Quality ID [id number]: Final reports for procedures using fluoroscopy that document radiation exp osure indices, or exposure time and number of fluorographic images (if radiation exposure indices are not available) Please consult full operative report of the attending physician for description of the procedure. TECHNICAL DOCUMENTATION: JOB ID: [id number] [employer]- All Rights Reserved
--- NOTE | 2017-04-04 04:14 | RADIOLOGY REPORT (SQ) ---
EXAM DESCRIPTION: NO CHG FLUORO; KUB/ABDOMEN (SINGLE VIEW) COMPLETED DATE/TIME: 04/04/2017 4:06 am REASON FOR STUDY: LEFT URETER STENT PLACEMENT COMPARISON: Ultrasound FLUOROSCOPY TIME: 32 seconds 2 images saved to PACS. TECHNIQUE: Intra-operative images acquired during surgical procedure to evaluate progress. NUMBER OF IMAGES: 2 LIMITATIONS: None. FINDINGS: Placement of a left ureteral stent. IMPRESSION: IMAGE(S) OBTAINED DURING PROCEDURE. COMMENT: Quality ID [id number]: Final reports for procedures using fluoroscopy that document radiation exp osure indices, or exposure time and number of fluorographic images (if radiation exposure indices are not available) Please consult full operative report of the attending physician for description of the procedure. TECHNICAL DOCUMENTATION: JOB ID: [id number] [employer]- All Rights Reserved
[2017-04-04] MEDS ORDERED: NORMAL SALINE 1000 ML 1,000 ML IV PRN (04:36)
[2017-04-04] MEDS ORDERED: NA PHOS,M-B/NA PHOS,DI-BA (ADULT) 133 ML ENEMA PR PRN (05:32)
[2017-04-04] MEDS ORDERED: LACTULOSE SYRUP 20 GM/30 ML UDCUP PO ONE (05:32)
--- NOTE | 2017-04-04 05:45 | PDOC H&P ---
History of Present Illness Admission Date/PCP: 04/04/17 01:44 MONSTER DAILY, JAMAAL-C Patient complains of: Left-sided flank pain History of Present Illness: MARYELLEN VALDOVINOS is a 56 year old female with a past medical history of cerebral aneurysm, intracranial bleed and status post clipping who would been her usual state of health until approximately 5 days ago noting left-sided flank pain with radiation to the groin prompting evaluation emergency room she is found to have a left-sided hydronephrosis with a 6 mm stone at the UVJ. She was treated with IV fluids and symptomatically then referred to outpatient urology but was lost to follow-up. She returns septic with hydronephrosis and clinical pyelonephritis requiring emergent urology consult for stenting and referred to the hospitalist for admission. She is evaluated and probably taken to the OR by urologist Dr. Guevara. She is seen postoperatively admittedly feeling much improved. Patient denies recent antibiotic or previous episode. Past Medical History Cardiac Medical History: Reports: Hyperlipidema Neurological Medical History: Reports: Seizures Psychiatric Medical History: Reports: Depression Past Surgical History Past Surgical History: Reports: Tubal Ligation Social History Information Source: Patient, [facility] Records Lives with: Spouse/Significant other Smoking Status: Former Smoker Last Time Smoked: 08/19/2016 Frequency of Alcohol Use: Occasional Hx Recreational Drug Use: No Drugs: None Hx Prescription Drug Abuse: No - Advance Directive Resuscitation Status: Full Code Family History Family History: Other - Mother with stomach cancer Parental Family History Reviewed: Yes Children Family History Reviewed: Yes Sibling(s) Family History Reviewed.: Yes Medication/Allergy Home Medications: Fenofibrate Nanocrystallized [Fenofibrate] 48 mg PO DAILY 04/04/17 Levetiracetam [Levetiracetam] 500 mg PO BID 04/04/17 Allergies/Adverse Reactions: hydralazine Allergy (Verified 03/31/17 16:27) morphine Allergy (Verified 04/03/17 23:33) Penicillins Allergy (Verified 03/31/17 16:27) ondansetron [From Zofran (as hydrochloride)] Adverse Reaction (Verified 16:27) Review of Systems Constitutional: ABSENT: chills, fever(s), headache(s), weight gain, weight loss Eyes: ABSENT: visual disturbances Ears: ABSENT: hearing changes Cardiovascular: ABSENT: chest pain, dyspnea on exertion, edema, orthropnea, palpitations Respiratory: ABSENT: cough, hemoptysis Gastrointestinal: ABSENT: abdominal pain, constipation, diarrhea, hematemesis, hematochezia, nausea, vomiting Genitourinary: ABSENT: dysuria, hematuria Musculoskeletal: ABSENT: joint swelling Integumentary: ABSENT: rash, wounds Neurological: ABSENT: abnormal gait, abnormal speech, confusion, dizziness, focal weakness, syncope Psychiatric: ABSENT: anxiety, depression, homidical ideation, suicidal ideation Endocrine: ABSENT: cold intolerance, heat intolerance, polydipsia, polyuria Hematologic/Lymphatic: ABSENT: easy bleeding, easy bruising Physical Exam Vital Signs: Temp Pulse Resp BP Pulse Ox 98.9 F 96 20 143/63 H 98 04/04/17 04:37 04/04/17 04:37 04/04/17 04:37 04/04/17 04:37 04/04/17 04:37 Intake & Output 04/02/17 04/03/17 04/04/17 11:59 11:59 11:59 Intake Total 1425 Output Total 900 Balance 525 General appearance: PRESENT: cooperative, mild distress Head exam: PRESENT: atraumatic, normocephalic Eye exam: PRESENT: conjunctiva pink, EOMI, PERRLA. ABSENT: scleral icterus Ear exam: PRESENT: normal external ear exam Mouth exam: PRESENT: moist, tongue midline Neck exam: ABSENT: carotid bruit, JVD, lymphadenopathy, thyromegaly Respiratory exam: PRESENT: clear to auscultation roosevelt. ABSENT: rales, rhonchi, wheezes Cardiovascular exam: PRESENT: RRR. ABSENT: diastolic murmur, rubs, systolic murmur Pulses: PRESENT: normal dorsalis pedis pul Vascular exam: PRESENT: normal capillary refill GI/Abdominal exam: PRESENT: diminished bowel sounds, distended, hypoactive bowel sounds, soft, tenderness - Left flank and left lower quadrant pain. ABSENT: firm Rectal exam: PRESENT: deferred Extremities exam: PRESENT: full ROM. ABSENT: calf tenderness, clubbing, pedal edema Neurological exam: PRESENT: alert, awake, oriented to person, oriented to place , oriented to time, oriented to situation, CN II-XII grossly intact. ABSENT: motor sensory deficit Psychiatric exam: PRESENT: appropriate affect, normal mood. ABSENT: homicidal ideation, suicidal ideation Skin exam: PRESENT: dry, intact, warm. ABSENT: cyanosis, rash Results Impressions: Chest X-Ray 04/03/17 23:46 IMPRESSION: NO ACUTE RADIOGRAPHIC FINDING IN THE CHEST. Fluoroscopy 04/04/17 00:00 IMPRESSION: IMAGE(S) OBTAINED DURING PROCEDURE. KUB X-Ray 04/04/17 00:00 IMPRESSION: IMAGE(S) OBTAINED DURING PROCEDURE. Renal Ultrasound 04/04/17 00:08 IMPRESSION: Left hydronephrosis unchanged from recent CT. Otherwise negative study of the kidneys and bladder. Assessment & Plan - Diagnosis (1) Sepsis Qualifiers: Sepsis type: sepsis due to unspecified organism Qualified Code(s): A41.9 - Sepsis, unspecified organism Is this a current diagnosis for this admission?: Yes Plan: Secondary to left-sided 6 mm stone in the distal ureter above the UVJ with hydronephrosis. IV fluid challenge initiated, empiric antibiotics status post stent placement. Follow-up blood and urine culture. (2) Pyelonephritis Is this a current diagnosis for this admission?: Yes Plan: Please see #1 (3) Hydronephrosis Qualifiers: Hydronephrosis type: with renal calculous obstruction Qualified Code(s): N13.2 - Hydronephrosis with renal and ureteral calculous obstruction Is this a current diagnosis for this admission?: Yes Plan: Please see #1 follow-up chemistry (4) Kidney stone on left side Is this a current diagnosis for this admission?: Yes Plan: Urology consult. - Time Time Spent: 50 to 70 Minutes - Inpatient Certification Medical Necessity: Need Close Monitoring Due to Risk of Patient Decompensation
[2017-04-04 06:33] LABS: HEMATOCRIT 30.6 % (36.0-47.0); HEMOGLOBIN 10.4 g/dL (12.0-15.5); HGB HCT DIFFERENCE 0.6; MEAN CORPUSCULAR HEMOGLOBIN 29.9 pg (27.0-33.4); MEAN CORPUSCULAR VOLUME 88 fl (80-97); RED BLOOD COUNT 3.49 10^6/uL (3.72-5.28); RED CELL DISTRIBUTION WIDTH 14.7 % (11.5-14.0)
[2017-04-04] MEDS: HEPARIN SOD (PORCINE) 5,000 UNIT/ML 1 ML SYRINGE SUBCUT SCH ×3 (06:37→22:13)
[2017-04-04 07:09] LABS: BAND NEUTROPHILS % (MANUAL) 7 % (3-5); BASOPHILS % (MANUAL) 0 % (0-2); EOSINOPHILS % (MANUAL) 0 % (0-6); LYMPHOCYTES % (MANUAL) 5 % (13-45); TOTAL CELLS COUNTED 100
[2017-04-04 07:12] LABS: TOXIC GRANULATION 1+
[2017-04-04 07:13] LABS: ANISOCYTOSIS 1+; HYPOCHROMASIA SLIGHT
--- NOTE | 2017-04-04 08:02 | EKG REPORT ---
SEVERITY:- BORDERLINE ECG - SINUS TACHYCARDIA PROBABLE LEFT ATRIAL ABNORMALITY BORDERLINE T WAVE ABNORMALITIES : Confirmed by: Mick Vaughan MD 04-Apr-2017 08:02:08
[2017-04-04] MEDS: FENOFIBRATE NANOCRYSTALLIZED 48 MG TABLET PO SCH (10:56)
[2017-04-04] MEDS: LEVETIRACETAM 500 MG TABLET PO SCH ×2 (10:57→18:03)
[2017-04-04] MEDS: DOCUSATE SODIUM 100 MG CAPSULE PO SCH ×2 (10:58→18:03)
--- NOTE | 2017-04-04 13:28 | PDOC PROGRESS REPORT ---
Subjective Progress Note for:: 04/04/17 Subjective:: Patient denies any complaints. Physical Exam Vital Signs: Temp Pulse Resp BP Pulse Ox 98.1 F 82 16 114/63 96 04/04/17 12:03 04/04/17 12:31 04/04/17 12:31 04/04/17 12:03 04/04/17 12:31 Intake & Output 04/03/17 04/04/17 04/05/17 06:59 06:59 06:59 Intake Total 1995 200 Output Total 900 400 Balance 1095 -200 Weight 103.5 kg General appearance: PRESENT: no acute distress Eye exam: PRESENT: conjunctiva pink. ABSENT: scleral icterus Mouth exam: PRESENT: moist, tongue midline Neck exam: ABSENT: JVD Respiratory exam: PRESENT: clear to auscultation roosevelt. ABSENT: rales, rhonchi, wheezes Cardiovascular exam: PRESENT: bradycardia GI/Abdominal exam: PRESENT: normal bowel sounds, soft. ABSENT: distended, guarding, mass, organolmegaly, rebound, tenderness Extremities exam: ABSENT: calf tenderness, clubbing, pedal edema Neurological exam: PRESENT: alert, awake, oriented to person, oriented to place , oriented to time, oriented to situation, CN II-XII grossly intact. ABSENT: motor sensory deficit Psychiatric exam: PRESENT: appropriate affect Skin exam: PRESENT: dry, intact, warm. ABSENT: cyanosis, rash Results Laboratory Results: 04/04/17 06:23 04/04/17 06:23 WBC 14.0 H RBC 3.49 L Hgb 10.4 L Hct 30.6 L MCV 88 MCH 29.9 MCHC 34.0 RDW 14.7 H Plt Count 181 Seg Neutrophils % Not Reportable Lymphocytes % Not Reportable Monocytes % Not Reportable Eosinophils % Not Reportable Basophils % Not Reportable Absolute Neutrophils Not Reportable Absolute Lymphocytes Not Reportable Absolute Monocytes Not Reportable Absolute Eosinophils Not Reportable Absolute Basophils Not Reportable Impressions: Chest X-Ray 04/03/17 23:46 IMPRESSION: NO ACUTE RADIOGRAPHIC FINDING IN THE CHEST. Fluoroscopy 04/04/17 00:00 IMPRESSION: IMAGE(S) OBTAINED DURING PROCEDURE. KUB X-Ray 04/04/17 00:00 IMPRESSION: IMAGE(S) OBTAINED DURING PROCEDURE. Renal Ultrasound 04/04/17 00:08 IMPRESSION: Left hydronephrosis unchanged from recent CT. Otherwise negative study of the kidneys and bladder. Assessment & Plan - Diagnosis (1) Sepsis Qualifiers: Sepsis type: sepsis due to unspecified organism Qualified Code(s): A41.9 - Sepsis, unspecified organism Is this a current diagnosis for this admission?: Yes Plan: Patient has sepsis from urinary tract infection. We will continue with the Rocephin. Vancomycin will be stopped. (2) Dehydration Is this a current diagnosis for this admission?: Yes Plan: Resolved with IV fluids. (3) Hydronephrosis Qualifiers: Hydronephrosis type: with renal calculous obstruction Qualified Code(s): N13.2 - Hydronephrosis with renal and ureteral calculous obstruction Is this a current diagnosis for this admission?: Yes Plan: Patient was evaluated by urology with placement of a stent. (4) Pyelonephritis Is this a current diagnosis for this admission?: Yes Plan: Continue Rocephin (5) Kidney stone on left side Is this a current diagnosis for this admission?: Yes Plan: Patient had a stent placed by urology. - Time Time Spent with patient: 25-34 minutes - Inpatient Certification Medical Necessity: Need For IV Fluids, Need for IV Antibiotics - Plan Summary Plan Summary: If she continues to do well we can hopefully discharge home tomorrow.
[2017-04-04] MEDS: KETOROLAC TROMETHAMINE INJ/PF 30 MG/1 ML SDV IV PRN (18:20)
[2017-04-04] MEDS: CEFTRIAXONE 1 GM/D5W RTU 1 GM/50 ML RTUPB IV SCH (22:13)
[2017-04-05] MEDS: KETOROLAC TROMETHAMINE INJ/PF 30 MG/1 ML SDV IV PRN ×2 (03:12→23:34)
[2017-04-05 05:12] LABS: ABSOLUTE LYMPHOCYTES (AUTO) 1.3 10^3/uL (0.5-4.7); ABSOLUTE MONOCYTES (AUTO) 1.1 10^3/uL (0.1-1.4); ABSOLUTE NEUT (AUTO) 9.8 10^3/uL (1.7-8.2); BASOPHILS % (AUTO) 0.4 % (0-2); EOSINOPHILS % (AUTO) 0.1 % (0-6); HEMATOCRIT 30.6 % (36.0-47.0); HEMOGLOBIN 10.4 g/dL (12.0-15.5); HGB HCT DIFFERENCE 0.6; LYMPHOCYTES % (AUTO) 10.9 % (13-45); MEAN CORPUSCULAR HEMOGLOBIN 29.7 pg (27.0-33.4); MEAN CORPUSCULAR HGB CONC 33.8 g/dL (32.0-36.0); MEAN CORPUSCULAR VOLUME 88 fl (80-97); MONOCYTES % (AUTO) 8.7 % (3-13); RED BLOOD COUNT 3.49 10^6/uL (3.72-5.28); RED CELL DISTRIBUTION WIDTH 14.8 % (11.5-14.0); SEGMENTED NEUTROPHILS % (AUTO) 79.9 % (42-78); WHITE BLOOD COUNT 12.2 10^3/uL (4.0-10.5)
[2017-04-05 05:34] LABS: ANION GAP 11 (5-19); BLOOD UREA NITROGEN 19 mg/dL (7-20); CALCIUM 8.6 mg/dL (8.4-10.2); CARBON DIOXIDE 26 mmol/L (22-30); CHLORIDE 100 mmol/L (98-107); CREATININE RESULT 0.75 mg/dL (0.52-1.25); GLUCOSE 125 mg/dL (75-110); SODIUM 137.4 mmol/L (137-145)
[2017-04-05] MEDS: HEPARIN SOD (PORCINE) 5,000 UNIT/ML 1 ML SYRINGE SUBCUT SCH ×3 (05:42→21:49)
[2017-04-05] MEDS: POTASSIUM CHLORIDE 20 MEQ/50 ML RTU IV SCH ×2 (06:23→08:30)
[2017-04-05] MEDS: IPRATROPIUM/ALBUTEROL 0.5-2.5 MG/3 ML AMPUL NEB PRN ×2 (08:55→15:40)
[2017-04-05] MEDS ORDERED: FUROSEMIDE 20 MG TABLET PO ONE (08:57)
[2017-04-05] MEDS ORDERED: FUROSEMIDE 40 MG TABLET PO ONE (09:30)
[2017-04-05] MEDS: BUTALB/ACETAMINOPHEN/CAFFEINE 1 TAB EACH PO PRN ×2 (10:09→14:28)
[2017-04-05] MEDS: LEVETIRACETAM 500 MG TABLET PO SCH ×2 (10:09→18:52)
[2017-04-05] MEDS: FENOFIBRATE NANOCRYSTALLIZED 48 MG TABLET PO SCH (10:09)
[2017-04-05] MEDS: DOCUSATE SODIUM 100 MG CAPSULE PO SCH ×2 (10:13→18:52)
--- NOTE | 2017-04-05 16:03 | PDOC PROGRESS REPORT ---
Subjective Progress Note for:: 04/05/17 Subjective:: Complains of a headache. Physical Exam Vital Signs: Temp Pulse Resp BP Pulse Ox 98.8 F 88 18 119/60 96 04/05/17 11:59 04/05/17 11:59 04/05/17 11:59 04/05/17 11:59 04/05/17 11:59 Intake & Output 04/04/17 04/05/17 04/06/17 06:59 06:59 06:59 Intake Total 1995 487 Output Total 900 1600 Balance 1095 -1113 Weight 103.5 kg 103 kg General appearance: PRESENT: no acute distress Eye exam: PRESENT: conjunctiva pink. ABSENT: scleral icterus Ear exam: PRESENT: normal external ear exam Mouth exam: PRESENT: moist, tongue midline Neck exam: ABSENT: JVD Respiratory exam: PRESENT: clear to auscultation roosevelt. ABSENT: rales, rhonchi, wheezes Cardiovascular exam: PRESENT: RRR. ABSENT: diastolic murmur, rubs, systolic murmur GI/Abdominal exam: PRESENT: normal bowel sounds, soft. ABSENT: distended, guarding, mass, organolmegaly, rebound, tenderness Extremities exam: ABSENT: calf tenderness, clubbing, pedal edema Neurological exam: PRESENT: alert, awake, oriented to person, oriented to place , oriented to time, oriented to situation, CN II-XII grossly intact. ABSENT: motor sensory deficit Psychiatric exam: PRESENT: appropriate affect Skin exam: PRESENT: dry, intact, warm. ABSENT: cyanosis, rash Results Laboratory Results: 04/05/17 04:16 04/05/17 04:16 04/05/17 04/05/17 04:16 04:16 WBC 12.2 H RBC 3.49 L Hgb 10.4 L Hct 30.6 L MCV 88 MCH 29.7 MCHC 33.8 RDW 14.8 H Plt Count 202 Seg Neutrophils % 79.9 H Lymphocytes % 10.9 L Monocytes % 8.7 Eosinophils % 0.1 Basophils % 0.4 Absolute Neutrophils 9.8 H Absolute Lymphocytes 1.3 Absolute Monocytes 1.1 Absolute Eosinophils 0.0 Absolute Basophils 0.0 Sodium 137.4 Potassium 3.0 L* Chloride 100 Carbon Dioxide 26 Anion Gap 11 BUN 19 Creatinine 0.75 Est GFR ( Amer) > 60 Est GFR (Non-Af Amer) > 60 Glucose 125 H Calcium 8.6 Impressions: Chest X-Ray 04/03/17 23:46 IMPRESSION: NO ACUTE RADIOGRAPHIC FINDING IN THE CHEST. Fluoroscopy 04/04/17 00:00 IMPRESSION: IMAGE(S) OBTAINED DURING PROCEDURE. KUB X-Ray 04/04/17 00:00 IMPRESSION: IMAGE(S) OBTAINED DURING PROCEDURE. Renal Ultrasound 04/04/17 00:08 IMPRESSION: Left hydronephrosis unchanged from recent CT. Otherwise negative study of the kidneys and bladder. Assessment & Plan - Diagnosis (1) Sepsis Qualifiers: Sepsis type: sepsis due to unspecified organism Qualified Code(s): A41.9 - Sepsis, unspecified organism Is this a current diagnosis for this admission?: Yes Plan: Patient has sepsis from urinary tract infection. Patient is growing gram- negative rods from her blood culture and urine culture. We will continue with the Rocephin. (2) Dehydration Is this a current diagnosis for this admission?: Yes Plan: Resolved with IV fluids. (3) Hydronephrosis Qualifiers: Hydronephrosis type: with renal calculous obstruction Qualified Code(s): N13.2 - Hydronephrosis with renal and ureteral calculous obstruction Is this a current diagnosis for this admission?: Yes Plan: Patient was evaluated by urology with placement of a stent. (4) Pyelonephritis Is this a current diagnosis for this admission?: Yes Plan: Continue Rocephin (5) Kidney stone on left side Is this a current diagnosis for this admission?: Yes Plan: Patient had a stent placed by urology. (6) Headache Is this a current diagnosis for this admission?: Yes Plan: We will give Fioricet as needed - Time Time Spent with patient: 25-34 minutes - Inpatient Certification Medical Necessity: Need for IV Antibiotics - Plan Summary Plan Summary: Can DC home when the ID of gram-negative rods are known.
[2017-04-05] MEDS: CEFTRIAXONE 1 GM/D5W RTU 1 GM/50 ML RTUPB IV SCH (21:49)
[2017-04-06 02:20] LABS: HEMATOCRIT 31.3 % (36.0-47.0); HEMOGLOBIN 10.7 g/dL (12.0-15.5); HGB HCT DIFFERENCE 0.8; MEAN CORPUSCULAR HEMOGLOBIN 29.9 pg (27.0-33.4); MEAN CORPUSCULAR HGB CONC 34.3 g/dL (32.0-36.0); MEAN CORPUSCULAR VOLUME 87 fl (80-97); RED BLOOD COUNT 3.59 10^6/uL (3.72-5.28); RED CELL DISTRIBUTION WIDTH 14.5 % (11.5-14.0); WHITE BLOOD COUNT 9.3 10^3/uL (4.0-10.5)
[2017-04-06 02:38] LABS: ANION GAP 12 (5-19); BLOOD UREA NITROGEN 13 mg/dL (7-20); CALCIUM 8.4 mg/dL (8.4-10.2); CARBON DIOXIDE 31 mmol/L (22-30); CHLORIDE 97 mmol/L (98-107); CREATININE RESULT 0.84 mg/dL (0.52-1.25); GLUCOSE 114 mg/dL (75-110); POTASSIUM 3.1 mmol/L (3.6-5.0); SODIUM 139.8 mmol/L (137-145)
[2017-04-06 02:42] LABS: BAND NEUTROPHILS % (MANUAL) 1 % (3-5); BASOPHILS % (MANUAL) 0 % (0-2); EOSINOPHILS % (MANUAL) 0 % (0-6); LYMPHOCYTES % (MANUAL) 21 % (13-45); TOTAL CELLS COUNTED 100
[2017-04-06 02:45] LABS: ANISOCYTOSIS SLIGHT; STOMATOCYTES SLIGHT
[2017-04-06] MEDS: HEPARIN SOD (PORCINE) 5,000 UNIT/ML 1 ML SYRINGE SUBCUT SCH ×2 (05:40→14:36)
[2017-04-06] MEDS: BUTALB/ACETAMINOPHEN/CAFFEINE 1 TAB EACH PO PRN (05:40)
[2017-04-06] MEDS: DOCUSATE SODIUM 100 MG CAPSULE PO SCH (09:15)
[2017-04-06] MEDS: FENOFIBRATE NANOCRYSTALLIZED 48 MG TABLET PO SCH (09:15)
[2017-04-06] MEDS: LEVETIRACETAM 500 MG TABLET PO SCH (09:15)
[2017-04-06] MEDS: IPRATROPIUM/ALBUTEROL 0.5-2.5 MG/3 ML AMPUL NEB PRN (11:05)
[2017-04-06] MEDS ORDERED: POTASSIUM CHLORIDE 10 MEQ TABLET.SA PO ONE (12:20)
--- NOTE | 2017-04-06 14:15 | PDOC DISCHARGE SUMMARY ---
General - Admit/Disc Date/PCP Admission Date/Primary Care Provider: 04/04/17 01:44 JAMAAL TINEO-Maurilio Discharge Date: 04/06/17 - Discharge Diagnosis (1) Hydronephrosis Is this a current diagnosis for this admission?: Yes (2) Pyelonephritis Is this a current diagnosis for this admission?: Yes (3) Hyperlipidemia Is this a current diagnosis for this admission?: Yes (4) Seizure disorder Is this a current diagnosis for this admission?: Yes (6) Kidney stone on left side Is this a current diagnosis for this admission?: Yes - Additional Information Resuscitation Status: Full Code Discharge Diet: Cardiac - Low-fat low-salt Discharge Activity: Activity As Tolerated, Balance Activity w/Rest Home Medications: Fenofibrate Nanocrystallized [Fenofibrate] 48 mg PO DAILY 04/04/17 Levetiracetam 500 mg PO BID 04/04/17 Levofloxacin [Levaquin 750 mg Tablet] 750 mg PO DAILY #12 tab 04/06/17 Tramadol HCl [Ultram] 50 mg PO TID PRN #20 tablet 04/06/17 Additional Information: Follow-up final report of blood culture outpatient with primary care physician in 2-3 days. Return to the emergency room if symptoms recur. Basic metabolic panel on next physician visit. History of Present Illness Patient complains of: Flank pain History of Present Illness: MARYELLEN VALDOVINOS is a 56 year old female with a past medical history of cerebral aneurysm, intracranial bleed and status post clipping who would been her usual state of health until approximately 5 days ago noting left-sided flank pain with radiation to the groin prompting evaluation emergency room she is found to have a left-sided hydronephrosis with a 6 mm stone at the UVJ. She was treated with IV fluids and symptomatically then referred to outpatient urology but was lost to follow-up. She returns septic with hydronephrosis and clinical pyelonephritis requiring emergent urology consult for stenting and referred to the hospitalist for admission. She is evaluated and probably taken to the OR by urologist Dr. Guevara. She is seen postoperatively admittedly feeling much improved. Patient denies recent antibiotic or previous episode. For details please refer to history and physical examination performed by the admitting physician. Hospital Course Hospital Course: The patient was admitted to the stepdown unit. Urology was consulted who eventually perform cystoscopy with stent placement on the left. This establishes good flow. Patient was begun on broad-spectrum antibiotics and analgesics. Patient's pain and discomfort improved. Urine culture grew Klebsiella. Blood culture growing gram-negative rods on one set but report is pending. The patient continues to improve clinically and wished to be discharged. She could no longer wait and just want to continue treatment outpatient and follow-up results of the culture with her primary care physician. She was advised to return to the emergency room if symptoms recur. Electrolytes were monitored and were replaced. The rest of the hospital stays unremarkable. Physical Exam Vital Signs: Temp Pulse Resp BP Pulse Ox 99.0 F 94 20 128/74 H 95 04/06/17 13:15 04/06/17 13:15 04/06/17 13:15 04/06/17 13:15 04/06/17 13:15 Intake & Output 04/05/17 04/06/17 04/07/17 06:59 06:59 06:59 Intake Total 487 1692 480 Output Total 1600 1500 Balance -1113 192 480 Weight 103 kg 99.9 kg General appearance: PRESENT: no acute distress, cooperative Eye exam: PRESENT: EOMI Mouth exam: PRESENT: moist, neck supple Neck exam: ABSENT: JVD Respiratory exam: PRESENT: clear to auscultation roosevelt Cardiovascular exam: PRESENT: RRR GI/Abdominal exam: PRESENT: normal bowel sounds, soft. ABSENT: distended Extremities exam: ABSENT: pedal edema Neurological exam: PRESENT: alert, awake, oriented to person, oriented to place , oriented to time, oriented to situation Skin exam: PRESENT: dry, warm. ABSENT: cyanosis Results Laboratory Results: 04/06/17 02:11 04/06/17 02:11 04/06/17 04/06/17 02:11 02:11 WBC 9.3 RBC 3.59 L Hgb 10.7 L Hct 31.3 L MCV 87 MCH 29.9 MCHC 34.3 RDW 14.5 H Plt Count 260 Seg Neutrophils % Not Reportable Lymphocytes % Not Reportable Monocytes % Not Reportable Eosinophils % Not Reportable Basophils % Not Reportable Absolute Neutrophils Not Reportable Absolute Lymphocytes Not Reportable Absolute Monocytes Not Reportable Absolute Eosinophils Not Reportable Absolute Basophils Not Reportable Sodium 139.8 Potassium 3.1 L Chloride 97 L Carbon Dioxide 31 H Anion Gap 12 BUN 13 Creatinine 0.84 Est GFR ( Amer) > 60 Est GFR (Non-Af Amer) > 60 Glucose 114 H Calcium 8.4 Impressions: Chest X-Ray 04/03/17 23:46 IMPRESSION: NO ACUTE RADIOGRAPHIC FINDING IN THE CHEST. Fluoroscopy 04/04/17 00:00 IMPRESSION: IMAGE(S) OBTAINED DURING PROCEDURE. KUB X-Ray 04/04/17 00:00 IMPRESSION: IMAGE(S) OBTAINED DURING PROCEDURE. Renal Ultrasound 04/04/17 00:08 IMPRESSION: Left hydronephrosis unchanged from recent CT. Otherwise negative study of the kidneys and bladder. Qualifiers PATEINT BEING DISCHARGED WITH ANY OF THE FOLLOWING DIAGNOSIS?: No Plan Discharge Plan: Follow-up with primary care physician in 3-5 days. Follow-up with urologist in 2 weeks. Time Spent: Less than 30 Minutes
[2017-04-06 14:19] VITALS: BP 108/65
== END 2017-04-06 15:00 | disposition home or self-care (01) | DRG 872 ==
LOC: ER 22:28 → EH 04-04 01:44 → UNDOADMIN 04-04 01:54 → EH 04-04 01:54 → 3N 04-04 04:56
PROVIDERS: ADMIT Internal Medicine; ATTEND Internal Medicine
PROC: 0T778DZ Dilation of Left Ureter with Intraluminal Device, Via Natural or Artificial Opening Endoscopic (ICD-10-PCS; principal; 2017-04-04 03:00)
DX: A41.9 Sepsis, unspecified organism (principal); N13.6 Pyonephrosis; B96.1 Klebsiella pneumoniae [K. pneumoniae] as the cause of diseases classified elsewhere; I10 Essential (primary) hypertension; E78.00 Pure hypercholesterolemia, unspecified; E86.0 Dehydration; G40.909 Epilepsy, unspecified, not intractable, without status epilepticus; R51 Headache; Z87.820 Personal history of traumatic brain injury; Z87.891 Personal history of nicotine dependence
CPT/HCPCS: 36415; 71010; 74000; 76770; 80048; 80076; 81001; 82803; 82962; 83605; 83690; 84484; 85025; 87040; 87077; 87086; 87088; 87186; 910; 93005; 93010; 94640; 94799; 96360; 99285; C1758; C2617; J0131; J0696; J1644; J1815; J1885; J2250; J2704; J3010; J3370; J3480; J3490; J7030; J7060; J7620

== ENCOUNTER 2017-06-11 09:14 | Day surgery (SDC) | payer BC, OTHER ==
[2017-06-11] MEDS ORDERED: PROPOFOL INJ 200 MG/20 ML VIAL IV ONE ×2 (09:55→11:47)
[2017-06-11] MEDS ORDERED: DIPHENHYDRAMINE HCL 50 MG/ML VIAL IV PRN (11:39)
[2017-06-11] MEDS ORDERED: MEPERIDINE HCL/PF INJ 25 MG/1 ML DISP.SYRIN IV PRN (11:39)
[2017-06-11] MEDS ORDERED: PROMETHAZINE HCL INJ 25 MG/1 ML VIAL IV PRN ×2 (11:39)
--- NOTE | 2017-06-11 12:29 | Operative Report ---
Operative Report DATE OF SURGERY: 06/11/17 Operative Report: The risks, benefits and alternatives of the procedure including risks of bleeding, perforation requiring surgery are explained to the patient in detail and informed consent is obtained. Patient is taken back to the operating room and placed in a left, lateral decubital position. Timeout was called. Propofol medications administered. A rectal examination is done which did not reveal any masses, tears or fissures. An Olympus videoscope was inserted into the patient's rectum. It is carefully advanced all the way to the cecum. The cecum was identified by the usual anatomical landmarks including the ileocecal valve as well as the appendiceal office. Photodocumentation is obtained. The scope was then sequentially pulled back via the various segments of the colon including the ascending colon, hepatic flexure, transverse colon, splenic flexure, descending colon and finding to the rectosigmoid portions of the colon. Retroflexion maneuvers performed. PREOPERATIVE DIAGNOSIS: Colorectal cancer screening POSTOPERATIVE DIAGNOSIS: Small ascending colon polyp status post removal with biopsy forceps. Diverticulosis. Internal hemorrhoids OPERATION: Colonoscopy with biopsy SURGEON: DOMINGA BAEZ ANESTHESIA: LMAC TISSUE REMOVED OR ALTERED: As noted above. COMPLICATIONS: None. ESTIMATED BLOOD LOSS: None. INTRAOPERATIVE FINDINGS: As noted above. PROCEDURE: Patient tolerated the procedure well. No immediate postprocedure complications are noted. Patient discharged in good condition. Discharge date 06/11/2017. Discharge diet: Regular. Discharge activity: Regular. 2-3 week follow-up to discuss findings. We will await pathology. If pathology is negative then can go 10 year surveillance colonoscopy. Patient is instructed to call the office or proceed to the emergency room should there be any further problems or questions.
[2017-06-11 13:32] VITALS: BP 124/78
== END 2017-06-11 13:25 | disposition home or self-care (01) ==
LOC: OROUT 09:14
PROVIDERS: ATTEND Internal Medicine Gastroenterology
PROC: 0DBK8ZX Excision of Ascending Colon, Via Natural or Artificial Opening Endoscopic, Diagnostic (ICD-10-PCS; principal; 2017-06-11 11:00)
DX: Z12.11 Encounter for screening for malignant neoplasm of colon (principal); D12.2 Benign neoplasm of ascending colon; E66.9 Obesity, unspecified; Z68.39 Body mass index [BMI] 39.0-39.9, adult; E78.00 Pure hypercholesterolemia, unspecified; M19.90 Unspecified osteoarthritis, unspecified site; Z87.891 Personal history of nicotine dependence; J44.9 Chronic obstructive pulmonary disease, unspecified
CPT/HCPCS: 45380; 88305 ×2; J2704; 810

== ENCOUNTER → 2017-06-18 | Outpatient (CLI) | payer BC ==
--- NOTE | 2017-06-18 10:43 | RADIOLOGY REPORT (SQ) ---
EXAM DESCRIPTION: CT LUNG CANCER SCREENING COMPLETED DATE/TIME: 06/18/2017 8:27 am REASON FOR STUDY: Z87.891 PERSONAL HISTORY OF NICOTINE DEPENDENCE Z87.891 PERSONAL HISTORY OF NICOT INE DEPENDENCE Z13.820 ENCOUNTER FOR SCREENING FOR OSTEOPOROSIS Has the patient had a Chest CT scan within the past year? No Was the patient offered tobacco cessation counseling? Yes Was the patient engaged in shared decision making for this test? Yes Does the patient have signs or symptoms of Lung Cancer? No Is the patient a smoker? No How many packs per year? 365 How many years since quitting smoking? Less than 1 year Patients age: 56 COMPARISON: None. TECHNIQUE: Low Dose CT scan performed of the chest without intravenous contrast for purposes of scre ening for lung cancer. Images reviewed with lung, soft tissue and bone windows. Reconstructed coron al and sagittal MPR images reviewed. All images stored on PACS. All CT scanners at this facility use dose modulation, iterative reconstruction, and/or weight based d osing when appropriate to reduce radiation dose to as low as reasonably achievable (ALARA). [facility]: Dose Right [facility]: CareDose [facility]: Dose Right [facility]: Teradose 4D [facility]: Weesh RADIATION DOSE: CT Rad equipment meets quality standard of care and radiation dose reduction techniq ues were employed. CTDIvol: 2.1 mGy. DLP: 79 mGy-cm. mGy. . LIMITATIONS: None FINDINGS: LUNGS AND PLEURA: No masses or nodules. No pleural effusions or calcifications. No pne umothorax. No scarring or interstitial changes. HILAR AND MEDIASTINAL STRUCTURES: No identified masses. No abnormal nodes. HEART AND VASCULAR STRUCTURES: No aortic aneurysm. No pericardial effusion. No cardiac devices. CORONARY ARTERY CALCIFICATIONS: No significant calcifications. UPPER ABDOMEN, THYROID, BONES, OTHER SOFT TISSUES: No significant findings. IMPRESSION: NO SIGNIFICANT FINDING IN THE LUNGS ON NON-CONTRASTED CHEST CT. NO OTHER CLINICALLY SIGNIFICANT/POTENTIALLY CLINICALLY SIGNIFICANT FINDINGS LUNGRADS: LUNGRADS: 1 NEGATIVE. NO NODULES, OR DEFINITELY BENIGN NODULES MODIFIER: NONE RECOMMENDATION: Continue annual screening with LDCT in 12 months. COMMENT: CRITERIA: No lung nodules. Nodules with specific calcifications: Complete, central, popcorn, concentric rings and fat containin g nodules. TECHNICAL DOCUMENTATION: JOB ID: [id number] Quality ID # [id number]: Final reports with documentation of one or more dose reduction techniques (e.g., Au tomated exposure control, adjustment of the mA and/or kV according to patient size, use of iterative reconstruction technique) 2010 [employer]
--- NOTE | 2017-06-18 11:53 | WOMENS IMAGING REPORT ---
EXAM DESCRIPTION: BONE DENSITY HIP/SPINE COMPLETED DATE/TIME: 06/18/2017 9:35 am REASON FOR STUDY: Z13.820 SCREENING FOR OSTEOPOROSIS Z87.891 PERSONAL HISTORY OF NICOTINE DEPENDEN CE Z13.820 ENCOUNTER FOR SCREENING FOR OSTEOPOROSIS COMPARISON: None. TECHNIQUE: Dual-Energy X-ray Absorptiometry (DEXA) of the AP Spine and Hip. LIMITATIONS: None. FINDINGS: LUMBAR SPINE: The bone mineral density (BMD) measured from L1-L4 in the AP projection correlates with a T-score of -1.7, which is osteopenia as defined by the World Health Organization. HIP: The bone mineral density (BMD) measured in the left hip correlates with a T-score of -1.8 in the femo ral neck, which is osteopenia as defined by the World Health Organization. IMPRESSION: 1. LUMBAR SPINE: OSTEOPENIA. 2. HIP: OSTEOPENIA. COMMENT: The World Health Organization defines low BMD as follows: T-score: Normal: Greater than -1.0 Osteopenia: Between -1.0 and -2.5 Osteoporosis: Less than -2.5 without fractures Established osteoporosis: Less than -2.5 with fractures In general, you may wish to consider: Diagnosis Treatment Follow-up DEXA Normal BMD Prevention 2-3 years Osteopenia Prevention/Therapy 1-2 years Osteoporosis Therapy Yearly TECHNICAL DOCUMENTATION: JOB ID: [id number]- All Rights Reserved
== END ==
LOC: RAD 08:20
PROVIDERS: ATTEND Family Medicine
DX: Z13.820 Encounter for screening for osteoporosis (principal); Z12.2 Encounter for screening for malignant neoplasm of respiratory organs; Z87.891 Personal history of nicotine dependence; M85.88 Other specified disorders of bone density and structure, other site
CPT/HCPCS: 77080; G0297

== ENCOUNTER → 2017-06-28 | Outpatient (CLI) | payer BC ==
--- NOTE | 2017-06-28 16:43 | WOMENS IMAGING REPORT ---
EXAM DESCRIPTION: BILAT SCREENING MAMMO W/CAD COMPLETED DATE/TIME: 06/28/2017 10:16 am REASON FOR STUDY: ROUTINE SCREENING; Z12.31 Z12.31 ENCNTR SCREEN MAMMOGRAM FOR MALIGNANT NEOPLASM O F DENNIS COMPARISON: None. TECHNIQUE: Standard craniocaudal and mediolateral oblique views of each breast recorded using NextUsera l acquisition. LIMITATIONS: None. FINDINGS: No masses, calcifications or architectural distortion. No areas of suspicion. Read with the assistance of CAD. .[facility] - R2 Cenova Version 1.3 .[facility] - R2 Cenova Version 1.3 .[facility] - R2 Cenova Version 2.4 .[facility] [place]2 Cenova Version 2.4 .[facility] - R2 Cash [employer] Officer Version 9.2 IMPRESSION: NORMAL MAMMOGRAM. BIRADS 1. BREAST DENSITY: b. There are scattered areas of fibroglandular density. BIRAD: 1 NEGATIVE RECOMMENDATION: ROUTINE SCREENING COMMENT: The patient has been notified of the results by letter per SA requirements. Additional no tification policies are in place for contacting patient with suspicious or incomplete findings. Quality ID #[id number]: The [employer] recommends an annual screening mammogram for women aged 40 years or over. This facility utilizes a reminder system to ensure that all patients receive reminder letters, and/or direct phone calls for appointments. This includes reminders for routine scr eening mammograms, diagnostic mammograms, or other Breast Imaging Interventions when appropriate. Th is patient will be placed in the appropriate reminder system. The [employer] (ACR) has developed recommendations for screening MRI of the breast s in certain patient populations, to be used in conjunction with mammography. Breast MRI surveillanc e may be appropriate for women with more than 20% lifetime risk of developing breast cancer as deter mined by genetic testing, significant family history of the disease, or history of mantle radiation f or Hodgkins Disease. ACR Practice Guidelines 2008. TECHNICAL DOCUMENTATION: FINDING NUMBER: (1) ASSESSMENT: (1) JOB ID: [id number] [employer]- All Rights Reserved
== END ==
LOC: WI 08:33
PROVIDERS: ATTEND Family Medicine
DX: Z12.31 Encounter for screening mammogram for malignant neoplasm of breast (principal)
CPT/HCPCS: 77067

== ENCOUNTER 2019-08-17 09:06 | Emergency (ER) | payer BC ==
[2019-08-17 09:45] VITALS: BP 147/90
[2019-08-17] MEDS ORDERED: PREDNISONE 20 MG TABLET PO ONE (09:56)
[2019-08-17] MEDS ORDERED: DIPHENHYDRAMINE HCL 25 MG CAPSULE PO ONE (09:56)
[2019-08-17] MEDS ORDERED: FAMOTIDINE 20 MG TABLET PO ONE (09:56)
[2019-08-17] MEDS ORDERED: IPRATROPIUM/ALBUTEROL 0.5-2.5 MG/3 ML AMPUL NEB ONE (09:56)
--- NOTE | 2019-08-17 10:01 | ER Document Report ---
HPI - HPI Time Seen by Provider: 08/17/19 09:52 Pain Level: 2 Notes: CHIEF COMPLAINT: 58-year-old female presenting to the emergency department complaining of 4 days of cough and congestion with shortness of breath. Developed a pruritic rash on the abdomen and axilla yesterday. Patient states her family members were diagnosed with influenza yesterday. Patient also complaining of left ear pain. Has had fever up to 102 at home HPI: ROS: See HPI - all other systems were reviewed and are otherwise negative Constitutional: + fever Eyes: no drainage, no blurred vision ENT: + runny nose, no sore throat Cardiovascular: no chest pain Resp: + SOB, + cough GI: no vomiting, no diarrhea, no abdominal pain : no dysuria Integumentary: + rash Allergy: no hives Musculoskeletal: no extremity pain or swelling Neurological: no numbness/tingling, no weakness MEDICATIONS: I agree with the patient medications as charted by the RN. ALLERGIES: I agree with the allergies as charted by the RN. PAST MEDICAL HISTORY/PAST SURGICAL HISTORY: Reviewed and agree as charted by RN. SOCIAL HISTORY: Reviewed and agree as charted by RN. FAMILY HISTORY: No significant familial comorbid conditions directly related to patient complaint EXAM: Reviewed vital signs as charted by RN. CONSTITUTIONAL: Alert and oriented and responds appropriately to questions. Well-appearing; well-nourished, mild distress secondary to discomfort HEAD: Normocephalic; atraumatic EYES: PERRL; Conjunctivae clear, sclerae non-icteric ENT: normal nose; positive clear rhinorrhea; moist mucous membranes; pharynx without lesions noted, no uvula edema or deviation, no tonsillar hypertrophy, phonation normal. Right tympanic membrane is pearly pérez. Left tympanic membrane is mildly hyperemic and is bulging with cloudy fluid NECK: Supple without meningismus; non-tender; no cervical lymphadenopathy, no masses CARD: RRR; no murmurs, no clicks, no rubs, no gallops; symmetric distal pulses RESP: Normal chest excursion without splinting or tachypnea; breath sounds noted to have expiratory wheezing in the posterior lung mcadams, no rhonchi, no rales, pulse oximetry 96% on room air not hypoxic ABD/GI: Normal bowel sounds; non-distended; soft, non-tender, no rebound, no guarding; no palpable organomegaly or masses. BACK: The back appears normal and is non-tender to palpation, there is no CVA tenderness EXT: Normal ROM in all joints; non-tender to palpation; no cyanosis, no effusions, no edema SKIN: Normal color for age and race; warm; dry; good turgor; diffuse raised erythematous rash that is blotchy across the abdomen under the breasts and in the bilateral axilla area does jonatan with pressure. No petechia purpura or vesicles NEURO: Moves all extremities equally; Motor and sensory function intact PSYCH: The patient's mood and manner are appropriate. Grooming and personal hyg iene are appropriate. MDM: 58-year-old female with what appears to be a left otitis media, does have wheezing will give breathing treatment, steroids. Does have a diffuse erythematous rash on the abdomen and axilla may be urticarial may be viral. Will give steroids given the wheezing, antihistamines. Will obtain chest x-ray for infiltrate - REPRODUCTIVE Reproductive: DENIES: : Past Medical History - Social History Smoking Status: Current Every Day Smoker Family History: Other - Mother with stomach cancer Patient has suicidal ideation: No Patient has homicidal ideation: No - Past Medical History Cardiac Medical History: Reports: Hx Hypercholesterolemia Denies: Hx Coronary Artery Disease, Hx Heart Attack, Hx Hypertension Pulmonary Medical History: Reports: Hx COPD Denies: Hx Asthma, Hx Bronchitis, Hx Pneumonia Neurological Medical History: Reports: Hx Cerebrovascular Accident - 08/2016 BRAIN ANEURYSM RUPTURED. Denies: Hx Seizures - hx of d/t brain surgery Renal/ Medical History: Reports: Hx Kidney Stones. 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 IN LAST 30 DAYS: No Course - Re-evaluation Re-evalutation: 08/17/19 11:08 Chest x-ray does not show evidence of infiltrate or pneumonia. Will treat symptomatically, treat the ear infection with Zithromax. - Vital Signs Vital signs: Temp Pulse Resp BP Pulse Ox 98.6 F 107 H 18 147/90 H 96 08/17/19 09:10 08/17/19 09:44 08/17/19 09:10 08/17/19 09:44 08/17/19 09:44 Discharge - Discharge Clinical Impression: Urticaria Otitis media Qualifiers: Otitis media type: unspecified Laterality: left Qualified Code(s): H66.92 - Otitis media, unspecified, left ear Upper respiratory infection Qualifiers: URI type: unspecified URI Qualified Code(s): J06.9 - Acute upper respiratory infection, unspecified Condition: Stable Disposition: HOME, SELF-CARE Additional Instructions: Use the albuterol inhaler 2 puffs every 4 hours as needed for shortness of breath or cough. Take the Zithromax as prescribed for the ear infection. Continue the steroids and antihistamines for the urticarial lesions as discussed Prescriptions: Prednisone [Deltasone 20 mg Tablet] 2 tab PO DAILY 5 Days #10 tablet Famotidine [Pepcid 20 mg Tablet] 20 mg PO DAILY #12 tablet Albuterol Sulfate [Proair HFA Inhalation Aerosol 8.5 gm MDI] 2 puff IH Q4H PRN #1 mdi PRN Reason: Azithromycin [Zithromax 250 mg Tablet] 250 mg PO ASDIR PRN #6 tablet PRN Reason: Referrals: SAYRA JAIME MD [Primary Care Provider] - Follow up as needed
--- NOTE | 2019-08-17 10:25 | RADIOLOGY REPORT (SQ) ---
EXAM DESCRIPTION: CHEST 2 VIEWS COMPLETED DATE/TIME: 08/17/2019 10:13 am REASON FOR STUDY: cough COMPARISON: AP and lateral views of the chest from 08/19/2016. EXAM PARAMETERS: NUMBER OF VIEWS: Two views. TECHNIQUE: PA and lateral views of the chest were obtained.. RADIATION DOSE: NA LIMITATIONS: none FINDINGS: LUNGS AND PLEURA: No consolidation, pleural effusion or pneumothorax. MEDIASTINUM AND HILAR STRUCTURES: No mediastinal or hilar contour abnormality. HEART AND VASCULAR STRUCTURES: The cardiac silhouette and pulmonary vasculature are within normal angelo its. BONES: No acute findings. HARDWARE: None in the chest. OTHER: No other finding. IMPRESSION: No acute cardiopulmonary process. TECHNICAL DOCUMENTATION: JOB ID: [id number] [employer]- All Rights Reserved Reading location - IP/workstation name: [email or web address]
== END 2019-08-17 11:19 | disposition home or self-care (01) ==
LOC: ER 09:06
DX: J06.9 Acute upper respiratory infection, unspecified (principal); L50.9 Urticaria, unspecified; H66.92 Otitis media, unspecified, left ear; R06.02 Shortness of breath; R50.9 Fever, unspecified; H92.02 Otalgia, left ear; J34.89 Other specified disorders of nose and nasal sinuses; J44.9 Chronic obstructive pulmonary disease, unspecified; F17.200 Nicotine dependence, unspecified, uncomplicated; Z20.828 Contact with and (suspected) exposure to other viral communicable diseases
CPT/HCPCS: 94640; 99283; 71046; J7512; J7620